=== PATIENT | female | born 1980 | race African-American/Black ===

== ENCOUNTER 2016-06-14 11:45 | Emergency (ER) | payer OTHER ==
[2016-06-14 11:55] VITALS: BP 100/63; PULSE 70; TEMP 97.9; BMI 19.0
--- NOTE | 2016-06-14 12:28 | PDOC ---
History of Present Illness - General Chief Complaint: Sore Throat Stated Complaint: BODY ACHES, SORE THROAT Time Seen by Provider: 06/14/16 12:27 History Source: Patient Exam Limitations: No Limitations - History of Present Illness Initial Comments: 06/14/16 12:46 CHIEF COMPLAINT: Intermittent sore throat, headache, body aches, dry cough and no menses since 04/27/2016 questionable HISTORY OF PRESENT ILLNESS: Patient is a 35-year-old female with no significant medical history here today due to having intermittent body aches, with headache , and sore throat with dry cough times one week. Patient denies having any fever. Patient also reporting that she has not had her menstrual cycle since is not on control could be . Would like test. Patient denies any difficulty swallowing or breathing. Patient also reports intermittent lower back pain with tingling in her right foot none presently. Patient denies any incontinency or any saddle anesthesia or any radiation of pain down the leg. She denies any heavy lifting. 06/14/16 21:27 Timing/Duration: intermittent (for one week ) Severity: mild Associated Symptoms: reports: cough (dry ), headaches (intermittent none now ), other (sore throat ). denies: fever/chills, nausea/vomiting Past History - Past Medical History Allergies/Adverse Reactions: Allergies Allergy/AdvReac Type Severity Reaction Status Date / Time No Known Allergies Allergy Verified 06/14/16 11:55 Home Medications: Ambulatory Orders NK [No Known Home Medication] 06/14/16 Other medical history: PT DENIES MECICAL HX - Psycho/Social/Smoking Cessation Hx Anxiety: No Suicidal Ideation: No Smoking History: Never smoked Hx Alcohol Use: No Drug/Substance Use Hx: No Review of Systems - Review of Systems Able to Perform ROS?: Yes Constitutional: No: Symptoms Reported HEENTM: Yes: Throat Pain Respiratory: Yes: Cough (dry cough ). No: Shortness of Breath, SOB with Exertion, SOB at Rest, Stridor, Wheezing, Productive cough Cardiac (ROS): No: Symptoms Reported ABD/GI: No: Symptoms Reported Musculoskeletal: Yes: Back Pain (intermittent lower back for one week none now ) . No: Other (generalized body aches for one week ) Neurological: Yes: Tingling (rt. foot intermittent if sitting for long time ) *Physical Exam - Vital Signs Last Vital Signs Temp Pulse Resp BP Pulse Ox 97.9 F 70 16 100/63 100 06/14/16 11:51 06/14/16 11:51 06/14/16 11:51 06/14/16 11:51 06/14/16 11:51 - Physical Exam General Appearance: Yes: Appropriately Dressed HEENT: positive: Normal ENT Inspection Neck: negative: Lymphadenopathy (R), Lymphadenopathy (L) Respiratory/Chest: positive: Lungs Clear, Normal Breath Sounds. negative: Chest Tender, Respiratory Distress Cardiovascular: positive: Regular Rhythm, Regular Rate, S1, S2 Gastrointestinal/Abdominal: positive: Normal Bowel Sounds, Soft. negative: Tender, Organomegaly, Increased Bowel Sounds, Distended, Guarding, Rebound, Tenderness, Hepatomegaly, Spleenomegaly Musculoskeletal: positive: Normal Inspection. negative: CVA Tenderness, CVA Tenderness (R), CVA Tenderness (L), Vertebral Tenderness Extremity: positive: Normal Capillary Refill, Normal Inspection, Normal Range of Motion Integumentary: positive: Normal Color Neurologic: positive: Alert, Normal Response, Motor Strength 5/5 (legs ), Respond to painful stimul (legs), Responsive. negative: Sensory Deficit Medical Decision Making - Medical Decision Making 06/14/16 12:51 Patient is a 35-year-old female with no significant medical history here today due to having intermittent body aches, with headache, and sore throat with dry cough times one week. Patient denies having any fever. Patient also reporting that she has not had her menstrual cycle since 05/05/2016 is not on control could be . Would like test. Patient denies any difficulty swallowing or breathing. Patient also reports intermittent lower back pain with tingling in her right foot none presently. Patient denies any incontinency or any saddle anesthesia or any radiation of pain down the leg. She denies any heavy lifting. Pharyngitis, generalized bodyaches, r/o PLAN: influenza A & B rapid negative throat C & S rapid negative urine hcg positive follow up with bilingual kindergarten teacher follow up with ortho if back pain reoccurs 06/14/16 13:38 06/14/16 21:26 06/14/16 21:27 *DC/Admit/Observation/Transfer Diagnosis at time of Disposition: Flu-like symptoms, Positive urine test - Discharge Dispostion Disposition: HOME Condition at time of disposition: Stable - Referrals Referrals: Nam Alexander MD [Staff Physician] - Bryson Borden MD [Staff Physician] - - Patient Instructions Additional Instructions: Follow-up with orthopedist if pain reoccurs and back Follow up with [facility] as soon as possible as she of test was positive today Take only Tylenol as needed for pain, headache or body aches Patient voiced understanding of discharge instructions and all questions were answered
== END 2016-06-14 13:54 | disposition home or self-care (01) ==
LOC: JERFT 11:45
DX: J11.1 Influenza due to unidentified influenza virus with other respiratory manifestations (principal); Z33.1 Pregnant state, incidental
CPT/HCPCS: 84703; 87070; 87186; 87430; 87804; 99281-25

== ENCOUNTER 2017-02-01 09:15 | Inpatient (IN) | payer OTHER ==
[2017-02-01] MEDS: ELECTROLYTE-148 SOLN 1,000 ML IV SCH (09:21)
--- NOTE | 2017-02-01 10:07 | HP ---
Past Medical History - Primary Care Physician PCP:: Scooter Mora - Admission Chief Complaint: 38.6 weeks, 2 previous c/s for sever pih , poor ob hx , cardiac arrythmia (PAC) History of Present Illness: 36 yo f with previous hx of sever PIH, with 2 previous c/s at 28, and 32 weeks in [place] for severe PIH and two , now fetus with arrythmia PAC admitted for repeat c/sriskd discussed, no headache, no blurred vision, recived steroids at 28 weeks History Source: Patient Limitations to Obtaining History: No Limitations - Past Medical History ...: 3 ...Para: 0 ...Term: 0 ...: 2 ...Spon : 0 ...Induced : 0 ...Multiple Gestation: 0 ...EDC by Dates: 02/09/17 ...EDC by Sono: 02/09/17 Additional OB History: hx of 2 previous c/s at 28and 32 weeks ,uknown type in [place] for severe PIH, both baby 2 days postdelivery - Past Surgical History Hx Myomectomy: No Hx Transabdominal Cerclage: No - Smoking History Smoking history: Never smoked - Alcohol/Substance Use Hx Alcohol Use: No - Social History Usual Living Arrangement: Yes: With Spouse History of Recent Travel: No Home Medications - Allergies Allergies/Adverse Reactions: Allergies Allergy/AdvReac Type Severity Reaction Status Date / Time No Known Allergies Allergy Verified 11/19/16 13:54 - Home Medications Home Medications: Ambulatory Orders Aspirin [ASA -] 81 mg PO ONCE 11/19/16 Pnv95/Ferrous Fumarate/FA [ Vitamin Tablet] 1 each PO DAILY 11/19/16 Review of Systems - Review of Systems Constitutional: reports: No Symptoms Eyes: reports: No Symptoms HENT: reports: No Symptoms Neck: reports: No Symptoms Cardiovascular: reports: No Symptoms Respiratory: reports: No Symptoms Gastrointestinal: reports: No Symptoms Genitourinary: reports: No Symptoms Breasts: reports: No Symptoms Reported Musculoskeletal: reports: No Symptoms Integumentary: reports: No Symptoms Neurological: reports: No Symptoms Endocrine: reports: No Symptoms Hematology/Lymphatic: reports: No Symptoms Psychiatric: reports: No Symptoms Physical Exam - Maternity Constitutional: Yes: Well Nourished, No Distress, Calm Eyes: Yes: WNL, Conjunctiva Clear, EOM Intact HENT: Yes: WNL, Atraumatic, Normocephalic Neck: Yes: WNL, Supple, Trachea Midline Cardiovascular: Yes: WNL, Regular Rate and Rhythm Breast(s): Yes: WNL - Abdominal Exam/OB Fundal Height: 40 Number of Fetuses: Single Presentation: Vertex Contractions: No Intensity: Unaware Monitor Mode: External Heart Rate Location: [facility] Category: I Accelerations: Uniform Decelerations: None - Vaginal Exam/OB Vaginal Bleediing: No Speculum Exam: No Dilatation (cm): closed Effacement (%): 50 Amniotic Membrane Status: Intact Presentation: Vertex/Position Station: -1 - Physical Exam Musculoskeletal: Yes: WNL Edema: LLE: Trace, RLE: Trace Deep Tendon Reflex Grade: Normal +2 Psychiatric: Yes: WNL Hemorrhage Risk Assessment - Risk Factors Medium Risk Factors: Yes: Prior , uterine surgery,or multiple laparotomies Risk Score: 1 Risk Level: Medium Risk Problem List - Problems (1) 38 weeks gestation of Code(s): Z3A.38 - 38 WEEKS GESTATION OF (2) Previous delivery affecting , antepartum Code(s): O34.219 - MATERNAL CARE FOR UNSP TYPE SCAR FROM PREVIOUS DEL (3) cardiac arrhythmia Code(s): JHG1283 - (4) Prior poor obstetrical history in third trimester, antepartum Code(s): O09.293 - SUPRVSN OF PREG W POOR REPRODCTV OR OBSTET HX, THIRD TRI Assessment/Plan repeat c/s rba discussed
[2017-02-01] MEDS ORDERED: morphine SULFATE/Preservative Free 0.5 MG/ML (1cc Syringe) SPIN ONE (10:10)
[2017-02-01] MEDS ORDERED: ONDANSETRON 4 MG/2 ML VIAL IVPB PRN (10:30)
[2017-02-01] MEDS ORDERED: IBUPROFEN 600 MG TABLET (FP) PO PRN (10:30)
[2017-02-01 10:40] VITALS: BMI 27.4
[2017-02-01] MEDS ORDERED: BENZOCAINE 20% 57 GM BOTTLE TP PRN (10:59)
[2017-02-01] MEDS ORDERED: WITCH HAZEL 50% (TUCKS) 40 PAD/JAR PAD TP PRN (10:59)
[2017-02-01] MEDS ORDERED: BENZOCAINE 28 GM HEMORRHOIDAL OINTMENT PR PRN (10:59)
[2017-02-01] MEDS ORDERED: IBUPROFEN 800 MG/8 ML IJ IVPB PRN (10:59)
[2017-02-01] MEDS ORDERED: METHYLERGONOVINE MALEATE 0.2 MG/1 ML AMP IM PRN (10:59)
[2017-02-01] MEDS ORDERED: OXYTOCIN 20 UNITS in 0.9% NS 1,000 ML IV SCH (11:00)
[2017-02-01] MEDS ORDERED: DEXTROSE 5%-LACTATED RINGERS 1,000 ML IV SCH (11:00)
[2017-02-01] MEDS ORDERED: ACETAMINOPHEN 325 MG TABLET (FP) PO PRN (11:03)
[2017-02-01] MEDS ORDERED: CITRIC ACID/SODIUM CITRATE 30 ML UNIT-DOSE CUP PO ONE (11:21)
[2017-02-01] MEDS: CEFAZOLIN 1 GM/D5W 50 ML IVPB SCH (18:20)
[2017-02-02] MEDS: ACETAMINOPHEN 325 MG TABLET (FP) PO PRN ×3 (00:14→19:27)
[2017-02-02] MEDS: IBUPROFEN 600 MG TABLET (FP) PO PRN ×2 (00:15→13:21)
[2017-02-02] MEDS: CEFAZOLIN 1 GM/D5W 50 ML IVPB SCH (02:19)
[2017-02-02 07:51] LABS: BASOPHIL 0.7 % (0-2.0); EOSINOPHIL 0.4 % (0-4.5); MCH 31.5 pg (25.7-33.7); MCHC 33.8 g/dl (32.0-36.0); MEAN CELL VOLUME 93.2 fl (80-96); MEAN PLT VOLUME 8.2 fl (7.5-11.1); NEUTROPHILS 66.2 % (42.8-82.8); PLATELET COUNT 165 K/MM3 (134-434); RDW 14.5 % (11.6-15.6); WHITE BLOOD COUNT 8.9 K/mm3 (4.0-10.0)
--- NOTE | 2017-02-02 08:21 | OP ---
DATE OF OPERATION: 02/01/2017 PREOPERATIVE DIAGNOSIS: , 38.6 weeks gestation, two previous sections, poor obstetrical history with previous severe preeclampsia and two demises, for repeat section. POSTOPERATIVE DIAGNOSIS: , 38.6 weeks gestation, two previous sections, poor obstetrical history with previous severe preeclampsia and two demises, for repeat section. PROCEDURE: Repeat low-segment transverse section. SURGEON: Scooter Mora MD MEDICAL FIELD REPRESENTATIVE: TETO Coulter ANESTHESIA: Spinal. ANESTHESIOLOGIST: Damian Arriaza MD ESTIMATED BLOOD LOSS: 500 mL. FINDINGS: Live baby girl, 9 and 9. OPERATION: The patient was taken to the operating room, had adequate spinal anesthesia. Abdomen and perineum were prepped and draped. Old keloid scar was removed from the previous site. Then, hemostasis was established. Then, abdominal wall was cut layer by layer until the peritoneum was exposed and incised. Upon entering the abdominal cavity, lower uterine segment was identified, and uterovesical fold of peritoneum was established, bladder was pushed down. Then, with the lower blade of the [place] retractor in the pelvis, a low transverse uterine incision was made. Incision was extended laterally. Amniotic sac was entered. Clear fluid, head delivered from right occiput transverse position. Nasopharynx was suctioned. Live baby boy was delivered without any difficulty. Placenta was delivered manually. Uterine cavity was cleaned of all remaining tissue. Uterine incision was closed using 2 layers, 1st layer with 0 Biosyn continuous suture, the 2nd layer with 0 Biosyn imbricating the 1st layer. Bladder flap was closed with 0 Biosyn continuous suture. Both tubes and ovaries were checked, were normal. No active bleeding was seen. All the lap, sponge, and instrument counts were correct. Then, peritoneum was closed with 0 Biosyn continuous suture, muscles were brought together with interrupted sutures of 0 Biosyn, fascia was closed with 0 Biosyn continuous suture, subcutaneous fat with interrupted suture of 0 Biosyn, and the skin was closed with marsha. Patient tolerated the procedure well, left the OR in good condition. Kylee [id number]
[2017-02-02] MEDS: ENOXAPARIN NA (PORCINE) 40 MG/0.4 ML DISP.SYRIN SQ SCH (10:19)
[2017-02-02] MEDS: diphenhydrAMINE HCL 25 MG CAPSULE (FP) PO PRN ×2 (10:31→19:27)
[2017-02-02] MEDS ORDERED: BISACODYL 10 MG SUPP.RECT RC PRN (10:59)
--- NOTE | 2017-02-02 11:50 | PN ---
Post Progress Note - Subjective Subjective: complains of pain scale 4/10 voiding without difficulty Post Day: 1 Type of Delivery: Repeat C/S Vital Signs: Vital Signs Temperature 98.4 F 02/02/17 10:00 Pulse Rate 60 02/02/17 10:00 Respiratory Rate 20 02/02/17 10:00 Blood Pressure 120/75 02/02/17 10:00 O2 Sat by Pulse Oximetry (%) 100 02/01/17 12:00 Breast Exam: Yes: Soft, Other (pumping milk ). No: Engorged Uterus: Yes: Fundus Firm, Fundus below umbilicus, Non-tender Incision: Yes: Dressing dry and intact. No: Redness, Oozing Abdomen/GI: Yes: Abdomen soft, Tolerating PO (fuids ). No: Abdominal Distention , Tender, Passing flatus Lochia: Yes: Rubra Lochia, amount: Moderate Extremities: Yes: Calves non-tender, Edema Perineum: Yes: Intact Activity: Ambulating - Labs Labs: CBC WBC 8.9 K/mm3 (4.0-10.0) D 02/02/17 06:50 RBC 3.72 M/mm3 (3.60-5.2) 02/02/17 06:50 Hgb 11.7 GM/dL (10.7-15.3) 02/02/17 06:50 Hct 34.6 % (32.4-45.2) 02/02/17 06:50 MCV 93.2 fl (80-96) 02/02/17 06:50 MCH 31.5 pg (25.7-33.7) 02/02/17 06:50 MCHC 33.8 g/dl (32.0-36.0) 02/02/17 06:50 RDW 14.5 % (11.6-15.6) 02/02/17 06:50 Plt Count 165 K/MM3 (134-434) 02/02/17 06:50 MPV 8.2 fl (7.5-11.1) 02/02/17 06:50 Neutrophils % 66.2 % (42.8-82.8) D 02/02/17 06:50 Lymphocytes % 22.9 % (8-40) D 02/02/17 06:50 Monocytes % 9.8 % (3.8-10.2) 02/02/17 06:50 Eosinophils % 0.4 % (0-4.5) 02/02/17 06:50 Basophils % 0.7 % (0-2.0) 02/02/17 06:50 Assessment/Plan poday#1 repeat c/s , stable encourage po fluids, ambulation & deep breathing
[2017-02-02] MEDS: SIMETHICONE 80 MG TAB.CHEW (FP) PO PRN ×2 (13:20→19:27)
--- NOTE | 2017-02-02 15:47 | PN ---
Progress Note (short form) - Note Progress Note: POD #1 - s/p under spinal anesthesia with duramorph. Pt. doing well, sitting comfortably in chair. c/o some itching which has resolved. Good pain control. No apparent anesthetic complications noted. Continue current care.
[2017-02-02] MEDS: ELECTROLYTE-148 SOLN 1,000 ML IV SCH (18:54)
[2017-02-02] MEDS: oxyCODONE HCL 5 MG TABLET PO PRN (19:27)
[2017-02-03] MEDS: SIMETHICONE 80 MG TAB.CHEW (FP) PO PRN ×3 (02:34→20:39)
[2017-02-03] MEDS: oxyCODONE HCL 5 MG TABLET PO PRN ×4 (02:35→22:29)
[2017-02-03] MEDS: IBUPROFEN 600 MG TABLET (FP) PO PRN ×3 (02:36→20:48)
--- NOTE | 2017-02-03 10:02 | PN ---
Post Progress Note - Subjective Subjective: 36 yo Para 3, status post repeat , seen and evaluated. She's doing well, no complaints. Post Day: 2 Type of Delivery: Repeat C/S Vital Signs: Vital Signs Temperature 98.7 F 02/02/17 22:00 Pulse Rate 78 02/02/17 22:00 Respiratory Rate 18 02/02/17 22:00 Blood Pressure 116/77 02/02/17 22:00 O2 Sat by Pulse Oximetry (%) 100 02/01/17 12:00 Breast Exam: Yes: Soft Uterus: Yes: Fundus Firm Incision: Yes: [place] intact Abdomen/GI: Yes: Abdomen soft, Tolerating PO Lochia: Yes: Rubra Lochia, amount: Small Extremities: Yes: Calves non-tender Perineum: Yes: Intact Activity: Ambulating - Labs Labs: CBC WBC 8.9 K/mm3 (4.0-10.0) D 02/02/17 06:50 RBC 3.72 M/mm3 (3.60-5.2) 02/02/17 06:50 Hgb 11.7 GM/dL (10.7-15.3) 02/02/17 06:50 Hct 34.6 % (32.4-45.2) 02/02/17 06:50 MCV 93.2 fl (80-96) 02/02/17 06:50 MCH 31.5 pg (25.7-33.7) 02/02/17 06:50 MCHC 33.8 g/dl (32.0-36.0) 02/02/17 06:50 RDW 14.5 % (11.6-15.6) 02/02/17 06:50 Plt Count 165 K/MM3 (134-434) 02/02/17 06:50 MPV 8.2 fl (7.5-11.1) 02/02/17 06:50 Neutrophils % 66.2 % (42.8-82.8) D 02/02/17 06:50 Lymphocytes % 22.9 % (8-40) D 02/02/17 06:50 Monocytes % 9.8 % (3.8-10.2) 02/02/17 06:50 Eosinophils % 0.4 % (0-4.5) 02/02/17 06:50 Basophils % 0.7 % (0-2.0) 02/02/17 06:50 Assessment/Plan Status post repeat Stable Ambulation Analgesia as needed Continue routine post op care
[2017-02-03] MEDS: ENOXAPARIN NA (PORCINE) 40 MG/0.4 ML DISP.SYRIN SQ SCH (10:09)
[2017-02-03] MEDS ORDERED: SENNOSIDES/DOCUSATE COMBO (SENNA PLUS) TABLET (UD) PO PRN (22:00)
[2017-02-03] MEDS: ACETAMINOPHEN 325 MG TABLET (FP) PO PRN (22:29)
[2017-02-03] MEDS: diphenhydrAMINE HCL 25 MG CAPSULE (FP) PO PRN (22:30)
[2017-02-04 07:54] LABS: BASOPHIL 0.6 % (0-2.0); EOSINOPHIL 1.5 % (0-4.5); MCH 31.6 pg (25.7-33.7); MCHC 33.8 g/dl (32.0-36.0); MEAN CELL VOLUME 93.7 fl (80-96); MEAN PLT VOLUME 7.4 fl (7.5-11.1); NEUTROPHILS 55.4 % (42.8-82.8); PLATELET COUNT 217 K/MM3 (134-434); RDW 14.5 % (11.6-15.6); WHITE BLOOD COUNT 7.5 K/mm3 (4.0-10.0)
--- NOTE | 2017-02-04 08:12 | PN ---
Progress Note (short form) - Note Progress Note: pod 3 s/p repeat c/s doing well , has incisional pain CBC, BMP 02/04/17 07:46 Last Vital Signs Temp Pulse Resp BP Pulse Ox 98.6 F 67 20 136/87 100 02/03/17 22:00 02/03/17 22:00 02/03/17 22:00 02/03/17 22:00 02/01/17 12:00 abdomen soft, no distension, no cva incision dry, clean no calf tenderness plan ambulate, pain management Problem List - Problems (1) 38 weeks gestation of Code(s): Z3A.38 - 38 WEEKS GESTATION OF (2) Previous delivery affecting , antepartum Code(s): O34.219 - MATERNAL CARE FOR UNSP TYPE SCAR FROM PREVIOUS DEL (3) cardiac arrhythmia Code(s): EGX0946 - (4) Prior poor obstetrical history in third trimester, antepartum Code(s): O09.293 - SUPRVSN OF PREG W POOR REPRODCTV OR OBSTET HX, THIRD TRI
--- NOTE | 2017-02-04 08:22 | DS ---
Physical Exam-SCREEN ROOM OPERATOR Vital Signs: Vital Signs Temperature 98.6 F 02/03/17 22:00 Pulse Rate 67 02/03/17 22:00 Respiratory Rate 20 02/03/17 22:00 Blood Pressure 136/87 02/03/17 22:00 O2 Sat by Pulse Oximetry (%) 100 02/01/17 12:00 Constitutional: Yes: Well Nourished, No Distress, Calm Eyes: Yes: WNL, Conjunctiva Clear, EOM Intact HENT: Yes: WNL, Atraumatic, Normocephalic Neck: Yes: WNL, Supple, Trachea Midline Cardiovascular: Yes: WNL, Regular Rate and Rhythm Respiratory: Yes: WNL, Regular, CTA Bilaterally Gastrointestinal: Yes: WNL ...Rectal Exam: Yes: WNL Renal/: Yes: WNL ....Post : Yes: Uterus firm, Uterus non-tender, Slight lochia rubra Breast(s): Yes: WNL Musculoskeletal: Yes: WNL Extremities: Yes: WNL Edema: LLE: Trace, RLE: Trace Integumentary: Yes: WNL Wound/Incision: Yes: Clean/Dry, Well Approximated, [place] Intact Neurological: Yes: WNL, Alert, Oriented ...Motor Strength: WNL Psychiatric: Yes: WNL, Alert, Oriented Labs: CBC, BMP 02/04/17 07:46 Delivery - Delivery Section: Repeat, Low Flap Transverse (no complication) Type of Anesthesia: Spinal Episiotomy/Laceration: None EBL (cc): 500 Delivery, Single - Stages of Labor Date of Delivery: 02/01/17 Time of Delivery: 10:23 Time Placenta Delivered: 10:24 Placenta: Yes: Expressed - Condition of Infant Experimental Mechanic Electrical/Babbitter Present: Yes Name: Uday Lopez Gender: Female Weight: 6 lb 15 oz Position: Right, OT Total Hours ROM (Hrs/Mins): 0hrs 2min - 1 Minute Total Score: 9 5 Minutes Total Score: 9 - [place] Feeding Plan Initial Plan: Exclusive throughout hospitalization Discharge Summary Reason For Visit: C SECTION Current Active Problems 38 weeks gestation of (Acute) cardiac arrhythmia (Acute) Previous delivery affecting , antepartum (Acute) Prior poor obstetrical history in third trimester, antepartum (Acute) Procedures: Principal: repeat LST c/s Condition: Good - Instructions Diet, Activity, Other Instructions: regular diet, follow up [facility] care 1 week Referrals: Scooter Mora MD [Staff Physician] - Disposition: HOME - Home Medications Comprehensive Discharge Medication List: Ambulatory Orders Aspirin [ASA -] 81 mg PO ONCE 11/19/16 Pnv95/Ferrous Fumarate/FA [ Vitamin Tablet] 1 each PO DAILY 11/19/16 Ferrous Sulfate [Feosol] 325 mg PO DAILY 02/01/17 Ibuprofen [Motrin -] 600 mg PO QID #28 tablet 02/04/17
[2017-02-04] MEDS: ENOXAPARIN NA (PORCINE) 40 MG/0.4 ML DISP.SYRIN SQ SCH (09:12)
[2017-02-04] MEDS: ACETAMINOPHEN 325 MG TABLET (FP) PO PRN (09:12)
[2017-02-04] MEDS: IBUPROFEN 600 MG TABLET (FP) PO PRN (09:13)
[2017-02-04] MEDS: SIMETHICONE 80 MG TAB.CHEW (FP) PO PRN (09:14)
[2017-02-04 11:23] VITALS: BP 131/81; PULSE 70; TEMP 99.3
--- NOTE | 2017-02-04 13:25 | PATH ---
Surgical Pathology Report Patient Name: JENNIFER BHAKTA Med. Rec. #: [id number] /Age/Gender: 1980 (Age: 36) / F Account: [id number] [facility] OBS/CABLEWAY OPERATOR Taken: 02/01/2017 Received: 02/02/2017 Reported: 02/04/2017 Physicians: Scooter Mora M.D. Specimen(s) Received PLACENTA Clinical History section x2 Repeat section Final Diagnosis PLACENTA, DELIVERY: FOCALLY DISRUPTED, SMALL (<400 GM), THIRD TRIMESTER PLACENTA WITH MILD PREVILLOUS, PERIVILLOUS, AND PRECHORIONIC FIBRIN DEPOSITION, THREE VESSEL UMBILICAL CORD, AND UNREMARKABLE PLACENTAL MEMBRANES. Electronically Signed Antonino Carrion M.D. Gross Description The specimen is received fresh, labeled "placenta" and is a 390 gram, 15 x 13 x 2.6 cm placenta with attached membranes and umbilical cord. The attached membranes are glistening and translucent and insert marginally. The umbilical cord measures 45 cm in length and averages 1.2 cm in diameter. The cord inserts eccentrically, 5 cm. to the nearest margin. No true knots or strictures are identified. Cut surface of the umbilical cord reveals 3 vessels. The surface is webb-blue with minimal fibrin deposition and appropriate caliber vessels. The maternal surface is red-brown with focal defects. Sectioning reveals red-brown, spongy parenchyma. No focal lesions are identified. Door Machine Operator sections are submitted in three cassettes as follows: 1- membrane rolls and umbilical cord; 2-3- full thickness sections of placenta. [facility]/02/03/2017 [facility]/02/03/2017
== END 2017-02-04 13:17 | disposition home or self-care (01) | DRG 540 ==
LOC: JLDR 09:15 → J3W 14:11
PROVIDERS: ADMIT Obstetrics & Gynecology; ATTEND Obstetrics & Gynecology
PROC: 10D00Z1 Extraction of Products of Conception, Low, Open Approach (ICD-10-PCS; principal; 2017-02-01)
DX: O34.211 Maternal care for low transverse scar from previous cesarean delivery (principal); N85.8 Other specified noninflammatory disorders of uterus; O99.42 Diseases of the circulatory system complicating childbirth; I49.8 Other specified cardiac arrhythmias; Z3A.38 38 weeks gestation of pregnancy; Z37.0 Single live birth
CPT/HCPCS: 36415; 85025; 88307-TC

== ENCOUNTER 2018-11-30 14:25 | Inpatient (IN) | payer OTHER ==
[2018-11-30 15:50] VITALS: TEMP 98.4
[2018-11-30 15:57] LABS: URINE APPEARANCE CLEAR; URINE BILIRUBIN NEGATIVE (NEGATIVE); URINE COLOR YELLOW; URINE GLUCOSE (UA) NEGATIVE (NEGATIVE); URINE KETONE NEGATIVE (NEGATIVE); URINE LEUK ESTERASE NEGATIVE (NEGATIVE); URINE NITRITE NEGATIVE (NEGATIVE); URINE PROTEIN 3+ (NEGATIVE); URINE UROBILINOGEN 0.2 mg/dL (0.2-1.0)
[2018-11-30 15:58] LABS: RETICULOCYTES 2.38 % (0.5-1.5)
[2018-11-30 16:23] LABS: URIC ACID 4.9 mg/dL (2.6-7.2)
[2018-11-30] MEDS ORDERED: LACTATED RINGERS SOLUTION 1,000 ML/1,000 ML INFUS.BAG IV SCH (16:45)
[2018-11-30] MEDS ORDERED: MAGNESIUM SULFATE 20GM/500ML - 20 GM/500 ML INFUS.BAG IV SCH (16:45)
[2018-11-30] MEDS ORDERED: BETAMET ACET/BETAMET NA PH 30 MG/5 ML VIAL IM ONE (16:45)
[2018-11-30] MEDS ORDERED: MAGNESIUM 4GM/H20 - 4 GM/100 ML IVPB IVPB ONE ×2 (16:49→17:11)
[2018-11-30] MEDS ORDERED: LABETALOL HCL 200 MG TABLET (FP) ONE (17:26)
[2018-11-30 17:35] VITALS: BMI 27.6
[2018-11-30 17:44] LABS: EPI CELLS 2.2 /HPF (0-5/HPF); HYALINE CASTS 4.87 /lpf (0-8); URINE BACTERIA 17.8 /hpf (NEGATIVE); URINE RBC 4.1 /hpf (0-4); URINE WBC 1.6 /hpf (0-5)
[2018-11-30] MEDS ORDERED: MAGNESIUM SULF 50% (8.12 MEQ/2 ML-1 GM VIAL) IVPB ONE (17:45)
[2018-11-30] MEDS ORDERED: LABETALOL HCL 200 MG TABLET (FP) PO ONE (17:45)
[2018-11-30] MEDS ORDERED: MAGNESIUM SULFATE 20GM/500ML - 20 GM/500 ML INFUS.BAG ONE (17:46)
[2018-11-30 18:25] VITALS: BP 150/93; PULSE 92
--- NOTE | 2018-11-30 22:01 | HP ---
Past Medical History - Primary Care Physician PCP:: Scooter Mora - Admission Chief Complaint: 27.5 weeks, PIH. previous c/s, AMA History of Present Illness: 38 yo f g 4 p1 2 0 1 with previous IUFD secondary to PIH , one term . 3 previous c/s seen in health center today with elevated BP , 3 + proteinuria , admitted for PIH, mgso4 tx and transfer to [facility] History Source: Patient Limitations to Obtaining History: No Limitations - Past Medical History ...: 4 ...Para: 3 ...Term: 1 ...: 2 ...Spon : 0 ...Induced : 0 ...Multiple Gestation: 0 ...LMP: 05/21/18 ... Weeks Gestation by Dates: 27.4 ...EDC by Dates: 02/25/19 ...EDC by Sono: 02/24/19 - Past Surgical History Past Surgical History: Yes: Hx Myomectomy: No Hx Transabdominal Cerclage: No - Smoking History Smoking history: Never smoked Have you smoked in the past 12 months: No - Alcohol/Substance Use Hx Alcohol Use: No - Social History History of Recent Travel: No Home Medications - Allergies Allergies/Adverse Reactions: Allergies Allergy/AdvReac Type Severity Reaction Status Date / Time No Known Allergies Allergy Verified 11/30/18 15:30 - Home Medications Home Medications: Ambulatory Orders Aspirin [ASA -] 81 mg PO BID 11/19/16 Pnv No.95/Ferrous Fum/Folic AC [ Vitamin Tablet] 1 each PO DAILY Ferrous Sulfate [Feosol] 325 mg PO DAILY 11/30/18 Review of Systems - Review of Systems Constitutional: reports: No Symptoms Eyes: reports: No Symptoms HENT: reports: No Symptoms Neck: reports: No Symptoms Cardiovascular: reports: No Symptoms Respiratory: reports: No Symptoms Gastrointestinal: reports: No Symptoms Genitourinary: reports: No Symptoms Breasts: reports: No Symptoms Reported Musculoskeletal: reports: No Symptoms Integumentary: reports: No Symptoms Neurological: reports: No Symptoms Endocrine: reports: No Symptoms Hematology/Lymphatic: reports: No Symptoms Psychiatric: reports: No Symptoms Physical Exam - Maternity Vital Signs: Vital Signs Temperature 98.4 F 11/30/18 17:45 Pulse Rate 92 H 11/30/18 17:45 Respiratory Rate 18 11/30/18 17:45 Blood Pressure 150/93 11/30/18 17:45 O2 Sat by Pulse Oximetry (%) Constitutional: Yes: Well Nourished, No Distress, Calm Eyes: Yes: WNL, Conjunctiva Clear, EOM Intact HENT: Yes: WNL, Atraumatic, Normocephalic Neck: Yes: WNL, Supple, Trachea Midline Cardiovascular: Yes: WNL, Regular Rate and Rhythm Breast(s): Yes: WNL - Abdominal Exam/OB Fundal Height: 28 Number of Fetuses: Single Presentation: Breech Contractions: No Intensity: Unaware Monitor Mode: External Heart Rate Location: [facility] Category: I Accelerations: Uniform Decelerations: None - Vaginal Exam/OB Vaginal Bleediing: No Speculum Exam: No Dilatation (cm): closed Effacement (%): o Amniotic Membrane Status: Intact Presentation: Brian Breech Station: -3 - Physical Exam Musculoskeletal: Yes: WNL Extremities: Yes: WNL Edema: Yes Edema: LLE: Trace, RLE: Trace Deep Tendon Reflex Grade: Normal +2 Psychiatric: Yes: WNL - Labs Lab Results: CBC, BMP 11/30/18 15:00 Hemorrhage Risk Assessment - Risk Factors Medium Risk Factors: Yes: Prior , uterine surgery,or multiple laparotomies Risk Score: 1 Risk Level: Medium Risk Problem List - Problems (1) with 27 completed weeks gestation Code(s): Z3A.27 - 27 WEEKS GESTATION OF (2) PIH ( induced hypertension) Code(s): O13.9 - GESTATIONAL HTN W/O SIGNIFICANT PROTEINURIA, UNSP TRIMESTER Qualifiers: Trimester: third trimester Qualified Code(s): O13.3 - Gestational [ -induced] hypertension without significant proteinuria, third trimester (3) Advanced maternal age (AMA) in Code(s): RNX8054 - (4) Previous section complicating Code(s): O34.219 - MATERNAL CARE FOR UNSP TYPE SCAR FROM PREVIOUS DEL Assessment/Plan admit mgso4 [place] transfer to [facility] case discussed with patient , agreed to be transfer
== END 2018-11-30 18:20 | disposition short-term general hospital (02) | DRG 566 ==
LOC: JDEL 14:25 → JLDR 16:30
PROVIDERS: ADMIT Obstetrics & Gynecology; ATTEND Obstetrics & Gynecology
DX: O13.2 Gestational [pregnancy-induced] hypertension without significant proteinuria, second trimester (principal); O34.211 Maternal care for low transverse scar from previous cesarean delivery; Z3A.27 27 weeks gestation of pregnancy
CPT/HCPCS: 36415; 81003; 82977; 83010; 84450; 84460; 84550; 85032; 85044; 96372

== ENCOUNTER 2021-04-22 19:26 | Emergency (ER) | payer OTHER ==
[2021-04-22 19:49] VITALS: BP 122/78; PULSE 63; TEMP 99.1; BMI 20.5
[2021-04-22] MEDS ORDERED: LIDOCAINE 5% TOPICAL PATCH TP ONE (20:49)
[2021-04-22] MEDS ORDERED: ACETAMINOPHEN 325 MG TABLET (FP) PO ONE (20:49)
[2021-04-22] MEDS ORDERED: ACETAMINOPHEN 325 MG TABLET (FP) ONE (21:06)
[2021-04-22] MEDS ORDERED: LIDOCAINE 5% TOPICAL PATCH ONE (21:07)
[2021-04-23] MEDS ORDERED: LIDOCAINE PATCH REMOVAL MC SCH (09:00)
== END 2021-04-22 22:39 | disposition home or self-care (01) ==
LOC: JER 19:26
DX: S29.9XXA Unspecified injury of thorax, initial encounter (principal); Y04.0XXA Assault by unarmed brawl or fight, initial encounter
CPT/HCPCS: 70450-TC; 71101-TC-LT-FY; 72125-TC; 84703; 99285-25

== ENCOUNTER 2021-04-27 11:08 | Emergency (ER) | payer OTHER ==
[2021-04-27 11:45] VITALS: BP 134/78; PULSE 61; TEMP 98.2; BMI 25.7
== END 2021-04-27 13:40 | disposition home or self-care (01) ==
LOC: JER 11:08 → JERFT 11:08
DX: S93.402A Sprain of unspecified ligament of left ankle, initial encounter (principal); M79.672 Pain in left foot; X50.1XXA Overexertion from prolonged static or awkward postures, initial encounter
CPT/HCPCS: 73610-TC-LT-FY; 73630-TC-LT; 99283-25